=== PATIENT | female | born 1995 | race Caucasian/White ===

== ENCOUNTER 2024-05-11 07:12 | Emergency (ER) | payer OTHER ==
[~2024-05-11] VITALS: Ht 152.4 cm; Wt 81.6 kg
[2024-05-11 07:26] VITALS: BP 134/93; PULSE 84; RESP 18; TEMP 97.7; O2SAT 99
[2024-05-11] MEDS ORDERED: CYCL-711 PO (08:43)
[2024-05-11] MEDS ORDERED: ACET-10509 PO (08:44)
[2024-05-11] MEDS: LIDOCAINE 2% 1000 MG/50 ML VIAL INJ ONE (08:44)
[2024-05-11 08:50] VITALS: BP 131/60; PULSE 88; RESP 20; TEMP 97.3; O2SAT 99
== END 2024-05-11 08:50 | disposition home or self-care (01) ==
LOC: MED 07:12
DX: S16.1XXA Strain of muscle, fascia and tendon at neck level, initial encounter (principal); Z79.1 Long term (current) use of non-steroidal anti-inflammatories (NSAID); Z79.899 Other long term (current) drug therapy; Z88.6 Allergy status to analgesic agent; X58.XXXA Exposure to other specified factors, initial encounter; Y93.89 Activity, other specified; Y92.89 Other specified places as the place of occurrence of the external cause; Y99.8 Other external cause status
CPT/HCPCS: 20553; 81025; 99284; J2001